=== PATIENT | female | born 1995 | race Caucasian/White ===

== ENCOUNTER 2022-01-18 22:51 | Inpatient (IN) | payer BC ==
[~2022-01-18] VITALS: Ht 177.8 cm; Wt 68.0 kg
--- NOTE | 2022-01-18 23:39 | NUR ---
BIBS FOR C/O L SIDED KIDNEY PAIN. PER PT SHE HAS HAD A BLADDER INFX X1 WEEK IS ON SECOND DAY OF ABX AND PT NOTICED THAT HER PAIN HAS PROGRESSED TO KIDNEYS WELL N/V. PT AFEBRILE ON ASSESSMENT BUT STATES SHE TOOK TYLENOL AT APPROX 2000. PT CHANGED INTO GOWN AND PLACED ON MONITOR AND V/S WNL.
--- NOTE | 2022-01-18 23:42 | NUR ---
URINE COLLECTED SENT TO LAB
[2022-01-18 23:58] LABS: BASOPHILS % (AUTO) 0.4 % (0.0-2.0); EOSINOPHILS % (AUTO) 1.2 % (0.0-6.0); HEMATOCRIT 42 % (33-45); HEMOGLOBIN 13.4 g/dL (11.5-14.8); LYMPHOCYTES # (AUTO) 1.9 K/uL (0.8-4.8); LYMPHOCYTES % (AUTO) 19.5 % (20.0-44.0); MEAN CORPUSCULAR HGB CONC 32 g/dl (31.0-36.0); MEAN CORPUSCULAR VOLUME 92 fL (82-100); MONOCYTES # (AUTO) 0.8 K/uL (0.1-1.30); MONOCYTES % (AUTO) 8.2 % (2.0-12.0); NEUTROPHILS # (AUTO) 6.9 K/uL (1.8-8.9); NEUTROPHILS % (AUTO) 70.7 % (43.0-81.0); PLATELET COUNT (AUTO) 234 K/uL (150-450); RED BLOOD CELL COUNT(AUTO) 4.51 MIL/uL (4.0-5.2); WHITE BLOOD COUNT (AUTO) 9.8 K/uL (4.3-11.0)
[2022-01-19] MEDS ORDERED: ONDANSETRON HCL/PF 4 MG/2 ML VIAL IVP ONE
[2022-01-19] MEDS ORDERED: IV NS 0.9% 1,000 ML BAG IV ONE
--- NOTE | 2022-01-19 00:05 | NUR ---
[address] [facility]. IVF INITIATED PER MD ORDER.
[2022-01-19] MEDS ORDERED: MORPHINE SULFATE INJ 4 MG/ML DISP.SYRIN ONE ×3 (00:11→05:19)
[2022-01-19] MEDS ORDERED: ONDANSETRON HCL/PF 4 MG/2 ML VIAL ONE ×4 (00:11→07:47)
[2022-01-19 00:12] LABS: CALCIUM, SERUM 8.7 mg/dL (8.5-10.1); CREATININE 0.8 mg/dL (0.6-1.3); POTASSIUM 3.8 mmol/L (3.5-5.1)
[2022-01-19 00:13] LABS: BILIRUBIN,URINE MODERATE (NEGATIVE); COLOR,URINE RED (YELLOW); LEUKOCYTE ESTERASE ,URINE TRACE (NEGATIVE); NITRITE, URINE POSITIVE (NEGATIVE); PROTEIN,URINE >=300 mg/dl (NEGATIVE); UGLUCOSE 250 MG/DL mg/dL (NEGATIVE); UROBILINOGEN,URINE >=8.0 EU/dL (0.2)
[2022-01-19 00:17] LABS: BACTERIA,URINE Rare /HPF (None Seen); SQUAMOUS EPITHELIAL CELL,UR Few /HPF (None Seen); WBC,URINE 0-2 /HPF (0-3)
[2022-01-19 00:18] LABS: ALBUMIN 3.8 g/dL (3.4-5.0); BILIRUBIN,DIRECT 0.2 mg/dL (0.0-0.2); BILIRUBIN,TOTAL 0.7 mg/dL (0.2-1.0); TOTAL PROTEIN, SERUM 6.9 g/dL (6.4-8.2)
[2022-01-19] MEDS ORDERED: LEVOFLOXACIN 750 MG /D5W 150ML 150 ML IV ONE (00:29)
[2022-01-19] MEDS ORDERED: LEVOFLOXACIN 750 MG /D5W 150ML PIGGYBACK IV ONE (00:30)
--- NOTE | 2022-01-19 01:09 | NUR ---
michelle collected and sent to lab
--- NOTE | 2022-01-19 01:13 | NUR ---
pt being transported to ct via [facility]
[2022-01-19] MEDS ORDERED: MORPHINE SULFATE INJ 2 MG/ML DISP.SYRIN IV ONE ×2 (01:30)
[2022-01-19] MEDS ORDERED: ONDANSETRON HCL/PF 4 MG/2 ML VIAL IV ONE (02:00)
[2022-01-19] MEDS ORDERED: HYDROCODONE/APAP 5/325MG TABLET ONE (02:18)
[2022-01-19] MEDS ORDERED: MORPHINE SULFATE INJ 2 MG/ML DISP.SYRIN IV PRN (02:30)
[2022-01-19] MEDS ORDERED: ACETAMINOPHEN 325 MG TABLET PO PRN (02:30)
[2022-01-19] MEDS ORDERED: HYDROCODONE/APAP 5/325MG TABLET PO PRN (02:30)
[2022-01-19] MEDS ORDERED: Z GUARD REMEDY 4 OZ OINT TP PRN (02:30)
[2022-01-19] MEDS ORDERED: MAGNESIUM HYDROXIDE 30 ML UDC PO PRN (02:30)
[2022-01-19] MEDS ORDERED: ONDANSETRON HCL/PF 4 MG/2 ML VIAL IVP PRN (02:30)
[2022-01-19] MEDS ORDERED: TEMAZEPAM 15 MG CAPSULE PO PRN (02:30)
[2022-01-19] MEDS ORDERED: IV NS 0.9% 1,000 ML IV PRN (02:30)
[2022-01-19] MEDS ORDERED: MAG HYDROX/AL HYDROX/SIMETH 30 ML UDC PO PRN (02:30)
--- NOTE | 2022-01-19 04:24 | NUR ---
PT AWAKE AND ALERT AMBULATED TO RESTROOM WITH STEADY GAIT. V/S REMAIN WNL.
[2022-01-19] MEDS: PANTOPRAZOLE 40 MG TABLET.DR PO SCH ×2 (07:30→09:33)
[2022-01-19] MEDS ORDERED: PANTOPRAZOLE 40 MG TABLET.DR PO ONE (07:47)
--- NOTE | 2022-01-19 08:14 | NUR ---
GOING TO BED 320 BED 1
--- NOTE | 2022-01-19 08:50 | NUR ---
PATIENT ADMITTED FROM ER WITH SOFIYA, ADMITTED DX UTI REPORTED BY Germán/RN. AOX 4, ABLE TO RESPONSE ALL STIMULI. C/O LOWER ABDOMINAL PAIN WHEN SHE URINATE. ORIENTED PATIENT CALL LIGHT, MEAL TIME, AND MEDICATIONS. CALL LIGHT WITHIN REACH, WILL CONTINUE TO MONITOR.
[2022-01-19 12:00] VITALS: BP 106/82
[2022-01-19 16:00] VITALS: BP 127/66
--- NOTE | 2022-01-19 17:14 | NUR ---
PATIENT RECEIVED DISCHARGE ORDER TO HOME , AND GIVEN D/C INSTRUCTION INCLUDE FOLLOW UP PRIMARY MD IN ONE WEEK. PATIENT DENIES DISTRESS, NO FURTHER HEMATOBIA OBSERVED. SKIN IS WARM TO TOUCH, RESPIRATORY EVEN AND UNLABORED IN ROOM AIR. REMOVED IV LINE AND ID TAG.
--- NOTE | 2022-01-19 18:40 | NUR ---
PATIENT LEFT FACILITY ACCOMPANIED BY STAFF TO THE PRIVATE CAR. PATIENT DENIES DISTRESS, IN STABLE CONDITION.
[2022-01-20] MEDS ORDERED: LEVOFLOXACIN 500 MG /D5W 100ML 500 MG/100 ML PIGGYBACK IV SCH (09:00)
== END 2022-01-19 19:03 | disposition home or self-care (01) | DRG 690 ==
LOC: ER 22:53 → TRANSITION 01-19 06:21 → MED 01-19 08:26
PROVIDERS: ADMIT Internal Medicine; ATTEND Internal Medicine
DX: N13.6 Pyonephrosis (principal); N20.2 Calculus of kidney with calculus of ureter; Z20.822 Contact with and (suspected) exposure to COVID-19; Z88.0 Allergy status to penicillin; N39.0 Urinary tract infection, site not specified; Q63.8 Other specified congenital malformations of kidney
CPT/HCPCS: 36415; 80048-TC; 80076-TC; 81001; 83690-TC; 84703-TC; 85025-TC; 85730-TC; 87086-TC; C9803; G0378; J1956; J2270; J2405; J7030

== ENCOUNTER 2022-03-18 07:49 | Emergency (ER) | payer BC ==
[~2022-03-18] VITALS: Ht 165.1 cm; Wt 63.5 kg
[2022-03-18] MEDS ORDERED: IBUPROFEN 600 MG TABLET PO ONE (08:30)
--- NOTE | 2022-03-18 08:32 | NUR ---
PHLEB AT BEDSIDE FOR BLOOD DRAW
[2022-03-18] MEDS ORDERED: IBUPROFEN 600 MG TABLET ONE (08:33)
[2022-03-18 08:52] LABS: BASOPHILS # (AUTO) 0.1 K/uL (0.0-0.2); BASOPHILS % (AUTO) 0.9 % (0.0-2.0); EOSINOPHILS % (AUTO) 3.6 % (0.0-6.0); HEMATOCRIT 42 % (33-45); HEMOGLOBIN 13.6 g/dL (11.5-14.8); LYMPHOCYTES # (AUTO) 1.4 K/uL (0.8-4.8); LYMPHOCYTES % (AUTO) 22.1 % (20.0-44.0); MEAN CORPUSCULAR HGB CONC 33 g/dl (31.0-36.0); MEAN CORPUSCULAR VOLUME 89 fL (82-100); MONOCYTES # (AUTO) 0.4 K/uL (0.1-1.30); NEUTROPHILS # (AUTO) 4.2 K/uL (1.8-8.9); NEUTROPHILS % (AUTO) 66.4 % (43.0-81.0); PLATELET COUNT (AUTO) 258 K/uL (150-450); RED BLOOD CELL COUNT(AUTO) 4.65 MIL/uL (4.0-5.2); WHITE BLOOD COUNT (AUTO) 6.3 K/uL (4.3-11.0)
[2022-03-18 09:08] LABS: CREATININE 0.7 mg/dL (0.6-1.3); POTASSIUM 3.9 mmol/L (3.5-5.1)
[2022-03-18 09:21] LABS: BILIRUBIN,URINE NEGATIVE (NEGATIVE); COLOR,URINE YELLOW (YELLOW); LEUKOCYTE ESTERASE ,URINE NEGATIVE (NEGATIVE); NITRITE, URINE NEGATIVE (NEGATIVE); PROTEIN,URINE NEGATIVE (NEGATIVE); UGLUCOSE NEGATIVE (NEGATIVE); UROBILINOGEN,URINE 0.2 EU/dL (0.2)
[2022-03-18 09:25] LABS: ALBUMIN 3.9 g/dL (3.4-5.0); BILIRUBIN,DIRECT 0.2 mg/dL (0.0-0.2); BILIRUBIN,TOTAL 0.9 mg/dL (0.2-1.0); TOTAL PROTEIN, SERUM 7.3 g/dL (6.4-8.2)
[2022-03-18 09:37] LABS: BACTERIA,URINE Moderate /HPF (None Seen); MUCUS,URINE Few /LPF (None Seen); RBC,URINE 51-80 /HPF (0-2); SQUAMOUS EPITHELIAL CELL,UR Few /HPF (None Seen)
[2022-03-18] MEDS ORDERED: IBUP-1957 PO (09:47)
--- NOTE | 2022-03-18 10:00 | NUR ---
Patient discharged to home in stable condition. Written and verbal after care instructions given. Patient verbalizes understanding of instruction.
[2022-03-18 10:01] VITALS: BP 128/65
== END 2022-03-18 10:01 | disposition home or self-care (01) ==
LOC: ER 07:58
DX: N20.0 Calculus of kidney (principal); Z88.0 Allergy status to penicillin; Z60.2 Problems related to living alone; Z87.442 Personal history of urinary calculi
CPT/HCPCS: 36415; 76700-TC; 80048-TC; 80076-TC; 81001; 83690-TC; 84703-TC; 85025-TC; 87086-TC